=== PATIENT | female | born 1935 | race Caucasian/White ===

== ENCOUNTER → 2021-12-06 | Outpatient (CLI) | payer OTHER | LOC: KOH-I 10:16 | DX: M79.671 Pain in right foot (principal); M25.571 Pain in right ankle and joints of right foot; M19.071 Primary osteoarthritis, right ankle and foot | CPT/HCPCS: 73610; 73630 ==

== ENCOUNTER → 2021-12-12 | Outpatient (CLI) | payer OTHER | LOC: US 13:19 | DX: I82.401 Acute embolism and thrombosis of unspecified deep veins of right lower extremity (principal); I73.9 Peripheral vascular disease, unspecified | CPT/HCPCS: 93971 ==